=== PATIENT | female | born 1940 | race Caucasian/White ===

== ENCOUNTER 2020-01-03 17:32 | Inpatient (IN) | payer MEDICARE ==
[2020-01-03] MEDS ORDERED: ASPIRIN CHEWABL81 MG PO (18:38)
[2020-01-03] MEDS ORDERED: LIPITOR20 MG PO (18:39)
[2020-01-03] MEDS ORDERED: ZESTORETIC 10-1 EACH PO (18:41)
[2020-01-03] MEDS ORDERED: DEPAKOTE DR500 MG PO (18:42)
[2020-01-03] MEDS ORDERED: LOPRESSOR25 MG PO (18:43)
[2020-01-03] MEDS ORDERED: ALBUTEROL S5 MG/1 ML NEB (18:45)
[2020-01-03] MEDS ORDERED: Ventolin 02.5 MG/3 M INH (18:45)
[2020-01-03] MEDS ORDERED: TYLENOL EXTRA500 M2 PO (18:46)
[2020-01-03] MEDS ORDERED: ZOFRAN4 MG PO (18:46)
[2020-01-04 19:00] VITALS: BP 102/63
--- NOTE | 2020-01-04 19:00 | NUR ---
MARLI ARGUETA a 79 year old F admitted via stretcher from the ADMITTING as a emergency 72 hr. hold admission. Arrived on unit at 1900PM. ALLERGIES: IODINE AND IVP DYE. Vital signs are: 97.9-87-16 102/63. CLIENT IS PINK SLIPPED AND DIDN'T SIGN ANY OF THE FOLLOWING: : Authorization For The Release of Medical Information, Clothing List, Consent to Voluntary Admission and Hospitalization, Consent and Release Forms/Receipt of Rights, Acknowledgement of Advance Directive Information, Behavioral Health Consent Form, and Informed Consent of Medications. Admitted under the services of Dr. MINISTERIO PAINTING,[facility]. A search was conducted and hazardous articles were removed. Client was oriented to the unit. CLIENT ANSWERED QUESTIONS BUT CONTINUALLY KEPT SAYING I AM SO TIRED I DON'T WANT TO DO THIS. DID ANSWER QUESTIONS BUT WAS "TOO TIRED" TO SIGN. FAZAL JOHNSTON
[2020-01-04] MEDS ORDERED: OXYGEN NAS (19:40)
[2020-01-04 19:43] VITALS: BP 102/63
--- NOTE | 2020-01-04 20:06 | NUR ---
NOTIFIED DR MAYNARD THAT CLIENT IS HERE AND MED REC IS READY FOR REVIEW.
--- NOTE | 2020-01-04 21:46 | NUR ---
DR MORTENSEN HERE TO SEE CLIENT
--- NOTE | 2020-01-04 23:48 | NUR ---
PORTABLE CHEST XRAY DONE
--- NOTE | 2020-01-05 00:20 | NUR ---
24 HR chart check completed.
[2020-01-05 06:54] LABS: HEMOGLOBIN 11.6 g/dl (12.0-16.0); MEAN CELL VOLUME 100.5 fl (81.0-99.0); MEAN CORPUSCULAR HGB 31.5 pg (27.0-31.0); MEAN CORPUSCULAR HGB CONC 31.4 g/dl (33.0-37.0); PLATELET COUNT AUTOMATED 243 10*3/uL (130-400); RED BLOOD COUNT 3.68 10*6/uL (4.10-5.10); RED CELL DISTRI WIDTH 15.6 % (0-14.5); WHITE BLOOD COUNT 12.5 10*3/uL (4.8-10.8)
[2020-01-05 07:12] LABS: ALBUMIN 2.4 gm/dl (3.1-4.5); CREATININE 1.86 mg/dL (0.55-1.02); POTASSIUM 5.4 mmol/L (3.5-5.1); TOTAL PROTEIN 7.5 gm/dL (6.4-8.2)
[2020-01-05 07:18] LABS: ATYPICAL LYMPHS 2 % (0-0); PLATELET SUFFICIENCY NORMAL (NORMAL); TOTAL CELLS COUNTED 100 #CELLS
[2020-01-05 07:35] LABS: THYROID STIM HORMONE (HS) 7.65 uIU/ml (0.358-4.75); VALPROIC ACID (DEPAKENE) 71.3 ug/ml (50-100)
--- NOTE | 2020-01-05 08:00 | NUR ---
Treatment Plan meeting was held with Dr. Porras RN, PRODUCTION SUPERVISOR OFF SHIFT-S and Teacher Of Family And Consumer Science. Plan for discharge Next week. Pt. came to [facility] from [facility] Skilled Will Reach out to Facility today to Discuss Discharge Planning.
[2020-01-05 08:06] LABS: VITAMIN D, 25-HYDROXY 16.6 ng/mL (30-100)
[2020-01-05 09:46] VITALS: BP 130/80
--- NOTE | 2020-01-05 10:30 | NUR ---
PATIENT IS ALERT TO PERSON, MONTH/YEAR AND SITUATION; ABLE TO VOICE NEEDS. AWARE OF BEING IN THE HOSPITAL. DENIES ANY HALLUCINATIONS, DELUSIONS, HI/SI OR PAIN. MEDICATION COMPLAINT WITH EDUCATION PROVIDED. Q 15 MINUTE SAFETY CHECKS. RECEIVED ORDER FOR 0.9 NS IV FLUIDS. IV STARTED IN RIGHT AC, BLOOD RETURN NOTED, FLUSHED WITHOUT DIFFICULTY. SITE FREE FROM INFECTION. IV INFUSING AT 100CC/HR. PATIENT RECEIVED COMPAZINE 5MG IM IN LEFT DELTOID. 1 PERSON ASSIST WITH ACTIVITTIES OF DAILY LIVING. INCONTINENT OF BOWEL AND BLADDER. SET UP FOR MEALS, INTAKES 25% FOR BREAKFAST AND LUNCH, ENCOURAGE FLUIDS. 99% ON 3 LITERS NC, NO SIGNS OR SYMPTOMS OF DISTRESS. CONTINUE TO MONITOR FOR AGGRESSION; PROVIDE ONE ON ONE AND REDIRECTION NEEDED.
--- NOTE | 2020-01-05 13:00 | NUR ---
P: DEPRESSED MOOD AND IRRITABLE TO NURSING STAFF WHILE ASSISTING IN BED. I: ONE ON ONE, REDIRECTION/ORIENTATION, PROVIDE PATIENT WITH SPACE AND WARM BLANKET. R: EFFECTIVE PATIENT IS RESTING IN BED WITH EYE CLOSED, NO S/S OF DISTRESS. P: CONTINUE TO MONITOR FOR MOOD CHANGES, AGGRESSION; PROVIDE ONE ON ONE AND REDIRECTION/ORIENTATION AND SPACE NEEDED.
--- NOTE | 2020-01-05 13:50 | NUR ---
Spoke with Rhiannon at [facility]. Pt. is SNF patient at facility and will return SNF at Discharge for PT/OT. Clinical Updates faxed to Facility Attn: Rhiannon [phone].
--- NOTE | 2020-01-05 16:09 | NUR ---
Shift chart check completed.
[2020-01-05 16:24] LABS: BILIRUBIN 1+ (NEGATIVE); BLOOD TRACE-INTACT (NEGATIVE); CLARITY SL CLOUDY (CLEAR); COLOR YELLOW (YELLOW); GLUCOSE NEGATIVE (NEGATIVE); KETONE 1+ (NEGATIVE); LEUKO ESTERASE 3+ (NEGATIVE); NITRITE NEGATIVE (NEGATIVE); SPECIFIC GRAVITY 1.025 (1.005-1.030); UROBILINOGEN 0.2 E.U./dl (0.2-1.0)
[2020-01-05 16:25] LABS: BACTERIA 3+; MUCOUS 2+; WBC TNTC wbc/hpf (0-5)
--- NOTE | 2020-01-05 16:38 | NUR ---
DR. WOLFF NOTIFIED OF UA RESULTS.
[2020-01-05 20:00] VITALS: BP 122/74
--- NOTE | 2020-01-05 21:21 | NUR ---
Patient alert and oriented to person,time and situation with confusion noted at times. Memory deficits noted. Mood is calm,pleasant and cooperative at this time. Patient denies SI at this time. No s/s of any responding to internal stimuli noted. Patient compliant with HS medications without any difficulty. Provided 1:1 for emotional support. Redirected/reoriented when needed. Patient in diningroom during snacks. Patient interactive with staff and other patients. Plan to continue to encourage medication compliance. Also continue to provide emotional support and redirect/reorient when needed/appropriate. Will continue to monitor moods/behaviors. Q 15 minute safety checks continued and maintained. See [facility] flowsheet for further documentation.
--- NOTE | 2020-01-06 05:40 | NUR ---
Patient slept approx. 7.5 hours throughout shift. Q 15 minute safety checks continued and maintained.
[2020-01-06 07:18] LABS: CREATININE 1.63 mg/dL (0.55-1.02); POTASSIUM 5.2 mmol/L (3.5-5.1)
--- NOTE | 2020-01-06 08:00 | NUR ---
Treatment Plan meeting was held with Dr. Porras, RM. AT, TITI-S and Linoleum Floor Layer. Plan for discharge Next Week with Return to [facility].
[2020-01-06 08:07] VITALS: BP 120/66
--- NOTE | 2020-01-06 08:31 | NUR ---
DR SCOTT ON UNIT TO ASSESS PT, UPDATE PROVIDED.
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
--- NOTE | 2020-01-06 11:42 | NUR ---
AM GROUP PT WAS PRESENT FOR MORNING GROUP THERAPY AND RELUCTANTLY ANSWERED A FEW OF MY ASSESSMENT QUESTIONS. PT WANTED TO GO LAY DOWN AND WAS AGITATED WHEN SHE ASKED ME AND I REPLIED, "I'LL SEE IF IT'S OKAY" PT STATED, "WHAT DOES THAT MEAN, I'LL SEE? I DON'T UNDERSTAND THAT. IF I WANT TO GO LIE DOWN WHY CAN'T I?" PT THEN SPOKE WITH NURSE AND A MINUTE LATER WHEN ASKED IF HER NURSE EXPLAINED TO HER WHY SHE COULDN'T LAY DOWN, PT STATED, "I DIDN'T TALK TO THE NURSE!" PT REFUSED ANY ACTIVITY OFFERED.
--- NOTE | 2020-01-06 12:00 | NUR ---
SPOKE WITH DR BARBA 98/50 AND TRAVIS HELD AT THIS TIME AND IT WAS ALSO HELD AT 1300 YESTERDAY D/T LOW BP. NO FURTHER ORDERS AT THIS TIME.
--- NOTE | 2020-01-06 13:30 | NUR ---
PHYSICAL THERAPY Attempted to see pt this PM for evaluation pt declining at this time as she had "just gotten back into bed and wanted to rest" will follow in the AM Graciela Hartman PT
--- NOTE | 2020-01-06 13:34 | NUR ---
Patient just put in bed and c/o being cold and tired. Patient declined Occupational Therapy evaluation this date. OTr will attempt at a later date. Yulissa Srivastava OTr/L
--- NOTE | 2020-01-06 15:37 | NUR ---
PM GROUP PT DID NOT ATTEND AFTERNOON GROUP THERAPY. PT WAS IN BED RESTING
--- NOTE | 2020-01-06 16:06 | NUR ---
This AM pt was pleasant with this commercial underwriter but quickly became irritated when pt requested to go to bed and this commercial underwriter explained that group was about to begin. Pt accused this commercial underwriter of having no idea what pt was feeling. Empathized with pt and offered for pt to participate in group discussion. Pt declined.
--- NOTE | 2020-01-06 17:17 | NUR ---
P: PT IRRITABLE WITH STAFF. PT CONTINOUSLY DEMANDING TO LAY DOWN.VPT REMOVES O2 INTERMITTENTLY. PT REFUSED TO PARTICIPATE IN AFTERNOON GROUP. I: PROVIDE EMOTIONAL SUPPORT AND 1:1 FOR PT TO VOICE FEELING, SET LIMITS RE: PT LAYING DOWN, PROVIDE EDUCATION RE: OXYGEN USE, ENCOURAGE GROUP PARTICIPATION AND SOCIALIZATION R: PT ALERT TO PERSON AND PLACE, CONFUSION AND SHORT TERM MEMORY DEFICITS NOTED PER PT BASELINE. PT MED COMPLIANT WITH ENCOURAGEMENT. PT CONTINUES TO BE DEMANDING AT TIMES. PT REFUSED TO PARTICIPATE IN AFTERNOON GROUP. PT REMAINS IRRITABLE WITH STAFF. PT UP TO A WHEELCHAIR, REQUIRES 1 STAFF ASSIST FOR TRANSFERS AND CARE. PT INCONTINENT OF BOWEL AND BLADDER, EPISODES OF INCONTINENCE NOTED, CARE PROVIDED NEEDED. P: MONITOR PT BEHAVIORS ON Q15 MIN SAFETY CHECCKS, ENCOURAGE MED COMPLIANCE AND PROVIDE MED EDUCATION, PROVIDE EMOTIONAL SUPPORT AND 1:1 FOR PT TO VOICE FEELINGS, ENCOURAGE GROUP PARTICIPATION AND SOCIALIZATION, CONTINUE TO PROVIDE REMINDERS TO LEAVE O2 ON AND PROVIDE EDUCATION ON O2 USE
[2020-01-06 20:00] VITALS: BP 110/62
--- NOTE | 2020-01-06 21:14 | NUR ---
Patient alert and oriented to person,time and situation with confusion noted at times. Memory deficits noted. Mood is calm,pleasant and cooperative but with slight underlying irritability noted. Patient denies SI at this time. No s/s of any responding to internal stimuli noted. Patient compliant with HS medications without any difficulty. Provided 1:1 for emotional support. Redirected/reoriented when needed. Patient isolative to her room this evening before snacks. Patient interactive with staff and other patients. Plan to continue to encourage medication compliance. Also continue to provide emotional support and redirect/reorient when needed/appropriate. Will continue to monitor moods/behaviors. Q 15 minute safety checks continued and maintained. See [facility] flowsheet for further documentation.
--- NOTE | 2020-01-07 00:06 | NUR ---
24 HR chart check completed.
--- NOTE | 2020-01-07 05:28 | NUR ---
Patient slept approx. 8.5 hours throughout shift. Q 15 minute safety continued and maintained.
[2020-01-07 06:52] LABS: CREATININE 1.26 mg/dL (0.55-1.02); POTASSIUM 4.7 mmol/L (3.5-5.1)
--- NOTE | 2020-01-07 08:00 | NUR ---
Occupational Therapy evaluation completed on 3 with full eval to follow. Recommend OT per pOC and return to SNF upon d/c. Thank you. Yulissa Srivastvaa OTR/l
--- NOTE | 2020-01-07 08:00 | NUR ---
Treatment Plan meeting was held with ANDRIY Hastings, RN, AT, PRINCIPAL TRAINER-S and Physician Scientist. [facility] Fri[facility]
[2020-01-07 08:04] VITALS: BP 110/70
--- NOTE | 2020-01-07 09:00 | NUR ---
PHYSICAL THERAPY Ismael completed moderate level of complexity recomend SNF at discharge. PT to work on transfers, amb, balance and strenthening. Graciela Hartman PT
--- NOTE | 2020-01-07 10:51 | NUR ---
XDR. TELLEZ NOTIFIED OF UA RESULTS.
--- NOTE | 2020-01-07 11:30 | NUR ---
Spoke with Niru from [facility]. Discussed Discharge Plan and return to [facility]. Provided Car Top Bolter with number to call to notify her of Discharge .
--- NOTE | 2020-01-07 11:41 | NUR ---
TENZIN GROUP/KEVIN PT DID NOT ATTEND MORNING GROUP THERAPY. PT IS IN ISOLATION
--- NOTE | 2020-01-07 13:25 | NUR ---
Pt did not attend AM group session due to isolation status.
--- NOTE | 2020-01-07 13:39 | NUR ---
DR. DENTON NOTIFIED OF MANUAL BP 100/40, RADIAL PULSE OF 88. OKAY TO GIVE LOPRESSOR 25MG.
--- NOTE | 2020-01-07 14:13 | NUR ---
PATIENT IS ALERT TO PEROSN, SITUATION; AWARE OF BEING IN HOSPITAL AND RECALLED DATE DEC 1999. MEMORY DIFICITS NOTED. MOOD IS STABLE, PLEASANT DEMEANOR. DENIES ANY HALLUCINATIONS, DELUSIONS, HI/SI OR PAIN. NO RESPONSE TO INTERNAL STIMULI. ENCOURAGED TO PARTICIPATE IN GROUP SESSION. INTERACTIVE WITH STAFF AND OTHER PATIENTS. MEDICATION COMPLAINT. Q 15 MINUTE SAFETY CHECKS MAINTAINED. 100 % ON 3 LITERS WITH DISTRESS OR COMPLAINTS OF SHORTNESS OF BREATH. 1 PERSON ASSIST WITH ACTIVITTIES OF DAILY LIVING, INCONTINENT OF BOWEL AND BLADDER. SET UP FOR MEALS, INTAKES ARE GOOD WITH ADEQUATE FLUIDS. NO AGGRESSION OBSERVED. CONTINUE TO MONITOR FOR AGGRESSION; PROVIDE ONE ON ONE AND REDIRECTION NEEDED.
--- NOTE | 2020-01-07 14:41 | NUR ---
Clinical Updates faxed to [facility] Attn: Rhiannon [phone]
--- NOTE | 2020-01-07 15:30 | NUR ---
PM GROUP PT ATTENDED AFTERNOON GROUP THERAPY AND PARTICIPATED BY READING THE NEWSPAPER AND OBSERVING PEERS AT WORK. PT EXHIBITED NO AGGRESSIVE BEHAVIORS WHILE IN GROUP
--- NOTE | 2020-01-07 15:45 | NUR ---
Shift chart check completed.
[2020-01-07 20:00] VITALS: BP 106/61
--- NOTE | 2020-01-08 01:49 | NUR ---
P-CONFUSION, ISOLATIVE I-REDIRECTION WITH 1:1 THERAPEUTIC INTERVENTIONS AND PRESENT REALITY. EDUCATE AND ENCOURAGE GROUP THERAPY WHILE AWAKE R-PATIENT ALERT WITH SHORT TERM AND SENIOR MEDICAL BILLING SPECIALIST MEMORY DEFICITS. PATIENT WITH NO HALLUCINATIONS OR DELUSIONS. PATIENT WITH NO SUICIDAL OR HOMICIDAL IDEATIONS. PATIENT CONTINUES ON ANTIBIOTIC THERAPY FOR +UTI. NO ADVERSE REACTIONS. PATIENT MEDICATION COMPLIANT. PATIENT PROVIDED WITH NOURISHMENT AND FLUIDS AT HS. PATIENT ISOLATIVE IN DINING AREA WITH LIMITED INTERACTION WITH PEERS. P-CONTINUE TO ENCOURAGE MEDICATION COMPLIANCE, CONTINUE TO PRESENT REALITY, ENCOURAGE GROUP THERAPY WHILE AWAKE
--- NOTE | 2020-01-08 05:58 | NUR ---
PATIENT SLEPT 7 HOURS OF UNINTERRUPTED SLEEP THROUGHOUT SHIFT. Q 15 MINUTE CHECKS MAINTAINED. 24 HR chart check completed.
[2020-01-08 07:48] VITALS: BP 119/75
--- NOTE | 2020-01-08 08:58 | NUR ---
DR SCOTT ON UNIT TO ASSESS PT
--- NOTE | 2020-01-08 09:00 | NUR ---
DISCUSSED PT'S BP WITH DR SCOTT AND REVIEWED MEDICATIONS. DR PARNELLED TO CONTINUE GIVING METOPROLOL AND HOLD ALL OTHER PRATIBHA MEDICATIONS.
--- NOTE | 2020-01-08 11:53 | NUR ---
AM GROUP/AFFIRMATIONS/MOVIE PT IN ATTENDANCE AND CHOSE NOT TO PARTICIPATE IN AFFIRMATION ACTIVITY BUT DID WATCH A MOVIE. PT PLEASANT WITH NO AGGRESSION EXPRESSED AT THIS TIME.
--- NOTE | 2020-01-08 15:51 | NUR ---
PM GROUP/AFFIRMATIONS/MOVIE PT ATTENDED FIRST PART OF GROUP BUT WAS NOT PARTICIPATING. PT SOON TAKEN TO LAY DOWN BEFORE DINNER.
--- NOTE | 2020-01-08 17:17 | NUR ---
NO ADVERSE BEHAVIORS NOTED THIS SHIFT. BEHAVIORS MONITORED WITH Q15 MINUTE SAFETY CHECKS. SEE [facility] FLOWSHEET FOR SPECIFIC MONITORING.
[2020-01-08 20:00] VITALS: BP 110/60
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
--- NOTE | 2020-01-09 01:27 | NUR ---
24 HR chart check completed.
[2020-01-09 08:00] VITALS: BP 115/53
--- NOTE | 2020-01-09 12:10 | NUR ---
AM GROUP/LEISURE SKILLS PT CHOSE NOT TO ATTEND BUT TO REMAIN RESTING IN BED DURING GROUP TIME.
--- NOTE | 2020-01-09 18:21 | NUR ---
NO ADVERSE BEHAVIORS NOTED THIS SHIFT. BEHAVIORS MONITORED WITH Q15 MINUTE SAFETY CHECKS. SEE [facility] FLOWSHEET FOR SPECIFIC MONITORING.
[2020-01-09 19:46] VITALS: BP 115/66
--- NOTE | 2020-01-09 21:29 | NUR ---
P--POOR ANGER MANAGEMENT I--GAVE CLIENT TIME TO VERBALIZE. REVIEWED MEDICATIONS AND ORIENTEATION. O2 NC ON PER ORDERS. SNACK PROVIDED BY STAFF. KEEPING LEGS ELEVATED. R--I HAD A GOOD DAY. I FEEL GOOD P- MONITOR FOR CHANGES IN BEHAVIOR/MOOD AND Q 15 MIN AND PRN FOR SAFETY
--- NOTE | 2020-01-10 02:11 | NUR ---
24 HR chart check completed.
--- NOTE | 2020-01-10 06:09 | NUR ---
UP READY FOR THE DAY. O2NC ON PER ORDERS.
--- NOTE | 2020-01-10 07:05 | NUR ---
PHYSICAL THERAPY Patient seen this am for therapy visit and was siiting up in activity room w/c with continuos O2-3L via NC upon therapist arrival. Patient identified by name / and reports no new c/o's at this time. OT nurse practitioner physicians assistant was present for observation only this session as patient transfers sit to stand CGA x 1. Patient ambulates EMBEDDED SYSTEMS DESIGNER/MIN, 75'x 1, with single handrail support, demonstrating bouts of unsteady gait pattern, decreased stride and very unsteady during 180 turns. Patient needed v/c to keep her head up during gait ex and returned to her w/c in activity room awaiting breakfast under [facility] staff Supervision. Will continue per POC as tolerated, total treatment time 14 minutes. Yony Adams, RETAIL RESET MERCHANDISER
--- NOTE | 2020-01-10 07:20 | NUR ---
OT NOTE Prior to going up to the floor called charge nurse Enid who was notified of therapy coming to the floor to treat this pt. Pt was seen this A.M. 1:1 for 20 minute OT session with DIESEL LOCOMOTIVE CRANE OPERATOR and nursing staff present for observation only. Upon arrival pt was sitting upright in the dining rojas in her w/c. Pt identified by name and and had no complaints at this time. Pt presented to therapy with continuous 3L-O2 via NC which she remained on throughout the entire session. Pt was taken to her bedroom where she completed sit to stand from chair level with CGA followed by functional mobility into the bathroom with CGA MASTER DATA ANALYST. There she transferred on/off standard commode with CGA and use of grab bar for UE support. While turning to the commode pt had one LOB that required Catherine to correct, educated pt on safe turning technique. Pt then stood sink side while washing her hands with Catherine for assist with sequencing. Pt had one LOB that occured backwards while standing unsupported and crossing midline, Catherine provided to correct. Functional mobility was then completed back to the hallway with CGA MASTER DATA ANALYST. Challenged pt's dynamic standing tolerance needed for increased I in self care tasks and functional transfers, pt was able to tolerate aprox 5 minutes before sitting due to fatigue. Pt was left sitting upright in the w/c in the dining rojas under [facility] staff supervision. Continue with rec D/C plan to SNF. CASA Loera
[2020-01-10 07:42] VITALS: BP 131/68
--- NOTE | 2020-01-10 08:00 | NUR ---
Treatment Plan meeting was held with ANDRIY Hastings, RN, AT, FLORAL MERCHANDISER-S and Director Of Business Operations. Plan for discharge with Return to [facility].
--- NOTE | 2020-01-10 09:27 | NUR ---
P: CONFUSION, ALERT TO PERSON AND APPROXIMATE PLACE I: PROVIDE 1:1 FOR THERAPEUTIC COMMUNICATION. REORIENT NEEDED. ENCOURAGE PT TO ATTEND/PARTICIPATE IN GROUP. ENCOURAGE MEDICATION COMPLIANCE. MONITOR BEHAVIORS WITH Q15 MINUTE SAFETY CHECKS. R: PT STATED SHE WAS IN [facility] AND THE YEAR WAS 2001. DENIES SI/HI, SADNESS AND DEPRESSION. ATTENDED AND PARTICIPATED IN GROUP. MEDICATION COMPLIANT. NO BEHAVIORS NOTED. P: CONTINUE TO ENCOURAGE PT TO ATTEND/PARTICIPATE IN GROUP. ENCOURAGE MEDICATION COMPLIANCE. REORIENT NEEDED. MONITOR BEHAVIORS WITH Q15 MINUTE SAFETY CHECKS. EDUCATE ON MEDICATIONS NEEDED. SEE [facility] FLOWSHEET FOR SPECIFIC MONITORING.
--- NOTE | 2020-01-10 11:40 | NUR ---
AM GROUP/MOVIE PT WAS PRESENT FOR MORNING GROUP THERAPY BUT SLEPT MOST OF THE TIME.
--- NOTE | 2020-01-10 13:54 | NUR ---
Clinical Updates faxed to [facility] Attn: Rhiannon Sotelo [phone].
--- NOTE | 2020-01-10 15:37 | NUR ---
PM GROUP PT DID NOT ATTEND AFTERNOON GROUP THERAPY. PT WAS IN BED RESTING.
[2020-01-10 19:45] VITALS: BP 120/60
--- NOTE | 2020-01-10 22:02 | NUR ---
Patient alert and oriented to person and place with confusion noted. Memory deficits noted. No s/s of any responding to internal stimuli noted at this time. Patient in diningroom for snacks and watching TV. Patient isolative to self while in diningroom. Patient interactve with staff only. Mood calm,pleasant,and cooperative. Patient compliant with HS medications without any difficulty. Provided 1:1 for emotional support. Patient said "my day was not good but I am happy to see you and my day is looking better now that you are here." Redirected/reoriented when needed. Plan to continue to encourage medication compliance and encourage more interaction with other patients and staff. Also continue to provide emotional support and also redirect/reorient when needed/appropriate. Will continue to monitor moods/behaviors. Q 15 minute safety checks continued and maintained. See [facility] flowsheet for further documentation.
--- NOTE | 2020-01-11 00:09 | NUR ---
24 HR chart check completed.
--- NOTE | 2020-01-11 05:07 | NUR ---
Patient slept approx. 7 hours throughout shift. Q 15 minute safety checks continued and maintained.
--- NOTE | 2020-01-11 07:00 | NUR ---
PHYSICAL THERAPY Patient seen this am for therapy visit and was sitting up on EOB following OT radiology assistant visit. Patient identified by name / and presented without O2, recording 89% SpO2 on RA. Patient is still currently on 3L-02 and placed back on 02 with NC, recording SpO2 94%. OT radiology assistant was present for observation only as patient transfers sit to stand CGA and ambulates TRANSPORT AIRCREWMAN/CGA, 50'x 1, demonstrating very cautious gait pattern with decreased stride. Patient also demonstrated several bouts of unsteady gait, especially during 180 turns. Patient unable to complete eyes open / closed secondary to fear of falling and increaed difficulty following therapist commands. Patient also fatigues quickly and needed w/c follow for safety, while returning to activity room awaiting breakfast. Patient remained in w/c at table under [facility] staff Suupervision. Will continue per POC as tolerated, total treatment time 14 minutes. Yony Adams, DANCE ENTERTAINER
--- NOTE | 2020-01-11 07:49 | NUR ---
Pt was seen for 15 minutes with OT beginning with fxl mobility to bathroom area using w/walker with CGA due to history of falls. 1 cue for safety when performing fxl mobility. Pt stood at sink in bathroom for grooming with S/CGA while washing face/hands & combing hair. Continue with OT POC. Micki SANTIAGO/Ricardo
[2020-01-11 08:00] VITALS: BP 110/70; BP 120/84
--- NOTE | 2020-01-11 08:00 | NUR ---
Treatment Plan meeting was held with Dr. Porras, ANDRIY Hastings RN, SENIOR ACCOUNT REPRESENTATIVE-S and University Relations Vice President. Plan for discharge Friday with return to [place].
--- NOTE | 2020-01-11 08:00 | NUR ---
Treatment Plan meeting was held with Dr. Porras, ANDRIY Hastings, RN, AT, REGIONAL INTERMODAL TRUCK DRIVER-S and Switch Adjuster. Plan for discharge with return to [facility].
--- NOTE | 2020-01-11 10:13 | NUR ---
AXEL MOLINA CNP ON UNIT TO ASSESS PATIENT.
--- NOTE | 2020-01-11 11:54 | NUR ---
Group discussion this AM between this pt, another female pt, and this gag writer. Discussed the benefits of having pets - companionship and unconditional love. Pts shared personal stories about current and previous pets. Pt was pleasant throughout discussion with no inappropriate behaviors. Pt did ask often when lunch would be coming but was easily redirected back to topic of discussion.
--- NOTE | 2020-01-11 12:37 | NUR ---
Spoke with Niru at [place]. Advised of Plans to discharge Friday. Transportation arranged with facility to transport with fish bait picker time 5:00-5:30 on Friday. That is the only available time slot open for transportation this week.
--- NOTE | 2020-01-11 12:51 | NUR ---
MANUAL BP TO RIGHT ARM 124/62, RADIAL PULSE 84
--- NOTE | 2020-01-11 17:00 | NUR ---
Shift chart check completed.
[2020-01-11 19:32] VITALS: BP 121/76
--- NOTE | 2020-01-11 20:21 | NUR ---
PATIENT IS ALERT AND ORIENTED TO PERSON, PLACE, TIME AND SITUATION; ABLE TO VOICE NEEDS. MOOD IS SLIGHT DEPRESSED, STABLE. DENIES ANY HALLUCINATIONS, DELUSIONS, HI/SI OR PAIN. 1 PERSON ASSIST WITH ACTIVITIES OF DAILY LIVING, INCONTINENT OF BOWEL AND BLADDER. SET UP FOR MEALS, INTAKES ARE GOOD WITH ADEQUATE FLUIDS. MEDICATION COMPLAINT WITH EDUCATION PROVIDED. Q 15 MINUTE SAFETY CHECKS MAINTAINED. CONTINUE TO MONITOR FOR AGGRESSION; PROVIDE ONE ON ONE AND REDIRECTION NEEDED.
--- NOTE | 2020-01-11 21:18 | NUR ---
Patient alert and oriented to person and place with confusion noted. Memory deficits noted. No s/s of any responding to internal stimuli noted at this time. Patient isolative to her room this evening. Patient interactve with staff only. Mood calm,pleasant,and cooperative. Patient compliant with HS medications without any difficulty. Provided 1:1 for emotional support. Redirected/reoriented when needed. Plan to continue to encourage medication compliance and encourage more interaction with other patients and staff. Also continue to provide emotional support and also redirect/reorient when needed/appropriate. Will continue to monitor moods/behaviors. Q 15 minute safety checks continued and maintained. See [facility] flowsheet for further documentation.
--- NOTE | 2020-01-12 00:33 | NUR ---
24 HR chart check completed.
--- NOTE | 2020-01-12 06:19 | NUR ---
Patient slept approx. 8 hours throughout shift. Q 15 minute safety checks continued and maintained.
[2020-01-12 06:45] LABS: BASO % 0.4 % (0.0-1.0); EOS # 0.3 10*3/uL (0.0-0.4); EOS % 3.9 % (1.0-4.0); HEMATOCRIT 25.7 % (37.0-47.0); LYMPH % 41.1 % (27.0-41.0); MEAN CELL VOLUME 101.6 fl (81.0-99.0); MEAN CORPUSCULAR HGB 31.6 pg (27.0-31.0); MEAN CORPUSCULAR HGB CONC 31.1 g/dl (33.0-37.0); MEAN PLATELET VOLUME 11.3 fl (9.6-12.3); MONO # 0.8 10*3/uL (0.1-1.0); MONO % 10.5 % (3.0-9.0); NEUT # 3.2 10*3/uL (2.3-7.9); NEUT % 43.1 % (47.0-73.0); PLATELET COUNT AUTOMATED 174 10*3/uL (130-400); RED BLOOD COUNT 2.53 10*6/uL (4.10-5.10); RED CELL DISTRI WIDTH 15.9 % (0-14.5); WHITE BLOOD COUNT 7.4 10*3/uL (4.8-10.8)
[2020-01-12 07:02] LABS: BUN 34 mg/dl (7-24); CHLORIDE 108 mmol/L (98-107); CREATININE 0.83 mg/dL (0.55-1.02); POTASSIUM 5.5 mmol/L (3.5-5.1); SODIUM 142 mmol/L (136-145)
--- NOTE | 2020-01-12 07:40 | NUR ---
PHYSICAL THERAPY Patient seen this am for therapy visit and was sitting up in activity room w/c upon therapist arrival. Patient identified by name / and presented with continuos O2-3L via NC. OT clinical laboratory assistant was present this morning for observation only as patient transfers sit to stand MIN a x 1. Patient ambulated 25'x 1, then additional 40'x 1, MIN/CGA, while pushing w/c to simulate a shopping cart. Patient needed several v/c's to focus on task as she demonstrated some mild bouts of confusion with quick onset of fatigue. Patient also needed v/c to increase stride and was very cautious during all turns. Patient requires 24/7 Supervision and remains high risk for falling as unable to complete single leg stance balance ex. Patient returned to activity room and remained in her w/c at table awaiting breakfast under [facility] staff Supervision. Will continue per POC as tolerated, total treatment time 15 minutes. Yony Adams, ECMO SPECIALIST
--- NOTE | 2020-01-12 07:50 | NUR ---
OT NOTE Before coming to the floor spoke with charge nurse Diana and notified of therapy coming to the floor to treat this pt. Pt was seen this A.M. 1:1 for 15 minute OT session with INSTRUMENT DESIGNER and nursing staff present for observation only. Upon arrival pt was sitting upright in the w/c in the dining rojas. Pt identified by name and and had no complaints at this time. Pt presented to therapy with continuous 3L-O2 via NC which she remained on throughout the entire session. Pt completed functional mobility the bathroom with Catherine AGEE. There she transferred on/off standard commode with CGA and use of grab bar for UE support. Pt then stood sink side while washing her hands with Catherine for assist with sequencing of task. Pt was educated on pursed lip breathing throughout which she had poor carry over of throughout session. Functional mobility completed back to the dining rojas with Catherine AGEE. There she was left sitting upright in the w/c under [facility] staff supervision. Throughout entire session pt required verbal prompts for attention to task. Continue with rec d/C plan to SNF. LATISHA Loera/Ricardo
--- NOTE | 2020-01-12 07:53 | NUR ---
SPOKE WITH AXEL OMLINA NP RE: PT POTASSIUM, HGB AND HCT RESULTS. PER AXEL SHE WILL TAKE A LOOK, NO FURTHER ORDERS AT THIS TIME.
[2020-01-12 08:00] VITALS: BP 110/70
--- NOTE | 2020-01-12 08:05 | NUR ---
Treatment Plan meeting was held with Dr. Porras, ANDRIY Hastings, RN, AT, GRE TUTOR-S and Finish Patcher. Plan for discharge Friday. Pt. will return to [facility] for SNF placement for therapy.
[2020-01-12 10:18] LABS: BASO % 0.2 % (0.0-1.0); EOS # 0.2 10*3/uL (0.0-0.4); EOS % 2.1 % (1.0-4.0); HEMATOCRIT 27.7 % (37.0-47.0); HEMOGLOBIN 8.6 g/dl (12.0-16.0); LYMPH # 1.9 10*3/uL (1.3-4.4); LYMPH % 22.7 % (27.0-41.0); MEAN CELL VOLUME 100.7 fl (81.0-99.0); MEAN CORPUSCULAR HGB 31.3 pg (27.0-31.0); MEAN PLATELET VOLUME 11.1 fl (9.6-12.3); MONO # 0.9 10*3/uL (0.1-1.0); MONO % 10.3 % (3.0-9.0); NEUT # 5.3 10*3/uL (2.3-7.9); NEUT % 63.6 % (47.0-73.0); PLATELET COUNT AUTOMATED 183 10*3/uL (130-400); RED BLOOD COUNT 2.75 10*6/uL (4.10-5.10); WHITE BLOOD COUNT 8.3 10*3/uL (4.8-10.8)
--- NOTE | 2020-01-12 10:26 | NUR ---
SPOKE WITH AXEL MOLINA NP RE: PT LABS, PER AXEL SHE WILL ORDER MORE FOR TOMORROW. NO FURTHER ORDERS AT THIS TIME.
--- NOTE | 2020-01-12 11:31 | NUR ---
Left Voice Message for Ashleigh at [facility] to notify of plans to discharge on Friday. Clinical Updates faxed to facility [phone].
--- NOTE | 2020-01-12 11:36 | NUR ---
AM GROUP PT DID NOT ATTEND MORNING GROUP THERAPY. PT WAS IN BED RESTING.
--- NOTE | 2020-01-12 11:40 | NUR ---
AXEL MOLINA SILVER MINER BLASTING ON UNIT TO ASSESS PT, UPDATE PROVIDED.
--- NOTE | 2020-01-12 13:21 | NUR ---
P: PT TEARFUL AT TIMES. PT ISOALTIVE TO ROOM THIS MORNING, REFUSING TO PARTICIPATE IN MORNING GROUP. PT IRRITABLE AT TIMES WITH STAFF AND PEERS. I: PROVIDE EMOTIONAL SUPPORT AND 1:1 FOR PT TO VOICE FEELINGS, ENCOURAGE GROUP PARTICIPATION AND SOCIALIZATION, ENCOURAGE MED COMPLIANCE AND PROVIDE MED EDUCATION R: PT ALERT TO PERSON AND PLACE, CONFUSION AND SHORT TERM MEMORY DEFICITS NOTED PER PT BASELINE. PT CALM, CONTINUES TO BE ISOLATIVE TO ROOM THROUGHOUT THE DAY, REFUSING TO PARTICIPATE IN MORNING GROUP. PT REMAINS IRRITABLE AT TIMES. NO HALLUCINATIONS OR DELUSIONS NOTED AT THIS TIME. NO SUICIDAL THOUGHTS OR BEHAVIORS NOTED AT THIS TIME. PT UP TO A WHEELCHAIR D/T UNSTEADY GAIT AND LACK OF SAFETY AWARENESS. PT WILL AMBULATE SHORT DISTANCES VIA 1-2 STAFF ASSIST. PT CONTINENT OF BOWEL AND BLADDER. P: MONITOR PT BEHAVIORS ON Q15 MIN SAFETY CHECKS, ENCOURAGE MED COMPLIANCE AND PROVIDE MED EDUCATION, ENCOURAGE GROUP PARTICIPATION AND SOCIALIZATION, RE-ORIENT AND PRESENT REALITY NEEDED, PROVIDE EMOTIONAL SUPPORT AND 1:l FOR PT TO VOICE FEELINGS.
--- NOTE | 2020-01-12 14:50 | NUR ---
PT NOT INTERACTING WITH GROUP ACTIVITY, THIS NURSE SPENT TIME 1:1 IN WHICH SHE BEGAN TO TALK ABOUT HER LOVE OF DRAWING, READING AND MUSIC. PT TALKED WITH THIS NURSE PLEASANT INTERACTIVE WHILE DRAWING A PICTURE. PT DID NOT WANT TO COLOR DUE TO COMPLAINT OF POOR VISION BUT BECAME ANIMATED WITH DRAWING FREE HANDED. PT SPOKE OF HER AND HOW HER DAUGHTER IS NO LONGER IN HER LIFE. PT UNABLE TO RECALL REASON FOR SEPARATION. CONTINUE TO MONITOR, NO SI/HI OR DELUSIONS NOTED. WORD FINDING DIFFICULTY NOTED AND EASILY DISTRACTED.
--- NOTE | 2020-01-12 15:32 | NUR ---
PM GROUP PT ATTENDED AFTERNOON GROUP THERAPY AND PARTICIPATED MINIMALLY. PT WAS FOCUSED ON GOING TO LAY DOWN. PT EXHIBITED NO AGGRESSIVE BEHAVIORS WHILE IN GROUP
[2020-01-12 20:00] VITALS: BP 112/64
--- NOTE | 2020-01-12 23:18 | NUR ---
P-CONFUSION, ISOLATIVE I-REDIRECTION WITH 1:1 THERAPEUTIC INTERVENTIONS AND PRESENT REALITY. EDUCATE AND ENCOURAGE GROUP THERAPY WHILE AWAKE R-PATIENT ALERT WITH SHORT TERM AND CART PUSHER MEMORY DEFICITS. PATIENT WITH NO HALLUCINATIONS OR DELUSIONS. PATIENT WITH NO SUICIDAL OR HOMICIDAL IDEATIONS. PATIENT PROVIDED WITH NOURISHMENT AND FLUIDS AT HS. PATIENT ISOLATIVE IN QUIET AREA WITH LIMITED INTERACTION WITH PEERS. PATIENT CONTINUES ON 3L O2 CONTINUOUS AND MAINTAINING WITHOUT DIFFICULTY P-CONTINUE TO ENCOURAGE MEDICATION COMPLIANCE, CONTINUE TO PRESENT REALITY, ENCOURAGE GROUP THERAPY WHILE AWAKE
[2020-01-13 06:22] LABS: BASO % 0.3 % (0.0-1.0); EOS # 0.3 10*3/uL (0.0-0.4); EOS % 4.5 % (1.0-4.0); HEMATOCRIT 23.5 % (37.0-47.0); HEMOGLOBIN 7.5 g/dl (12.0-16.0); LYMPH # 2.9 10*3/uL (1.3-4.4); MEAN CELL VOLUME 100.9 fl (81.0-99.0); MEAN CORPUSCULAR HGB 32.2 pg (27.0-31.0); MEAN CORPUSCULAR HGB CONC 31.9 g/dl (33.0-37.0); MONO # 0.8 10*3/uL (0.1-1.0); MONO % 10.5 % (3.0-9.0); NEUT # 3.2 10*3/uL (2.3-7.9); NEUT % 43.5 % (47.0-73.0); PLATELET COUNT AUTOMATED 164 10*3/uL (130-400); RED BLOOD COUNT 2.33 10*6/uL (4.10-5.10); RED CELL DISTRI WIDTH 16.3 % (0-14.5); WHITE BLOOD COUNT 7.3 10*3/uL (4.8-10.8)
--- NOTE | 2020-01-13 06:27 | NUR ---
MARLI ARGUETA [id number] Please refer to the physician's history and physical for past medical history, comorbid conditions, and allergies. Diagnosis: INTERMITTENT EXPLOSIVE DISORDER Todd Score: 16,AT RISK WOUND DESCRIPTIONS: Wound Number: 1 Location of the wound: Left buttocks Type of wound: IAD Thickness: Partial Size: 8.0cm x 0.5cm x 0.1cm Tunneling: none Undermining: none Sinus Tract: none Presence of Exudate: none Amount: None Color: Red Odor: None Periwound Skin Appearance: Normal Wound edges: approximated Pain (associated with wound): none at time of assessment How does patient state this happened? pt unsure how this happened Wound Number: 2 Location of the wound: right buttocks Type of wound: IAD Thickness: Partial Size: 6.0cm x 0.2cm x 0.1cm Tunneling: none Undermining: none Sinus Tract: none Presence of Exudate: none Amount: None Color: Red Odor: None Periwound Skin Appearance: Normal Wound edges: approximated Pain (associated with wound): none at time of assessment How does patient state this happened? pt unsure how this happened Surface the patient is resting on: Proform SKIN PREVENTION RECOMMENDATION: 1. Pressure redistribution support surface as appropriate 2. Elevate heels 3. Remove boots/TEDS every shift and reapply 4. Head of bed 30 degrees as tolerated 5. Assess nutrition and hydration 6. Manage moisture 7. Avoid the use of containment devices while in bed 8. Use absorptive products on surfaces limit layers of linens on bed 9. Turn and reposition every 1-2 hours in bed and every 1 hour in chair as tolerated 10. Weight shifts every 15 minutes while up in chair 11. Offloading with pillows or device to keep heels elevated off bed 12. Monitor skin at least every shift 13. Inspect under medical devices twice a day WOUND TREATMENT RECOMMENDATIONS: Cleanse right and left buttocks with nss and apply calazime every shift and prn for soiling. Continue Wheelchair cushion when oob
[2020-01-13 06:46] LABS: BUN 32 mg/dl (7-24); CHLORIDE 109 mmol/L (98-107); CREATININE 0.95 mg/dL (0.55-1.02); SODIUM 143 mmol/L (136-145)
--- NOTE | 2020-01-13 07:05 | NUR ---
PHYSICAL THERAPY Patient seen this am for therapy visit and was sitting up in conference room w/c upon therapist arrival. Patient identified by name / and presented with continuous 02-2L via IA. OT quality control assistant was also present this morning for observation only as patient reports no new c/o's at this time. Patient transfers sit to stand CGA and ambulates SOFTWARE DEVELOPMENT PROJECT MANAGER/CGA, however demonstrated very unsteady gait pattern. Patient instructed to hold onto w/c from behind and push it along like a shopping cart. Patient stated she felt safer and continued for 50'x 2, CGA, demonstrating "shuffling" gait pattern with decreased stride. Patient fatigues quickly, needing a brief seated rest break, < 30 seconds to complete all gait ex safely this session. Patient returned to w/c in activity room awaiting breakfast, under [facility] staff Supervision. Will continue per POC as tolerated, total treatment time 16 minutes. Yony Adams, AUTO DISMANTLER
--- NOTE | 2020-01-13 07:15 | NUR ---
OT NOTE Prior to coming to the floor spoke with charge nurse Jessica and reported that therapy would be coming to the floor to treat this pt. Pt was seen this A.M. 1:1 for 15 minute OT session with VIDEOGAME TESTER and nursing staff present for observation only. Upon arrival pt was sitting upright in the w/c in the quiet room. Pt identified by name and and had no complaints at this time. Pt presented to therapy with continuous 2L-O2 via NC which she remained on throughout the entire session. Pt completed sit to stand from chair level with Catherine followed by functional mobility to the bedroom with CGA CARPENTER CRADLE AND DOLLY. There she transferred sit to supine with SBA and supine to sit EOB with SBA. Challenged pt's dynamic standing balance needed for increased I and enhanced safety in self care tasks, pt was able to maintain F-/P+ standing balance while weight shifting, crossing midline, and reaching over all planes. Pt was left sitting upright in the w/c in the quiet room under [facility] staff supervision. Continue with rec D/C plan to SNF. LATISHA Loera/Ricardo
--- NOTE | 2020-01-13 07:41 | NUR ---
SPOKE WITH DR WOLFF AT [phone] RE: PT LAB RESULTS FOR THIS MORNING. PER DR WOLFF HE WILL MAKE A NOTE. NO FURTHER ORDERS AT THIS TIME.
[2020-01-13 08:00] VITALS: BP 114/62
--- NOTE | 2020-01-13 08:00 | NUR ---
Treatment Plan meeting was held with Dr. Porras, RN, AT and Brick Tender. Plan for discharge Friday. [facility].
--- NOTE | 2020-01-13 08:06 | NUR ---
Patient eating breakfast at this time in dining room with peers. Respirations easy and regular. Vital signs stable. No overt distress. TRAV LITTLE on unit to see pt at this time, update given.
--- NOTE | 2020-01-13 09:03 | NUR ---
Dr. Rico notified of wound care recommendations
--- NOTE | 2020-01-13 13:22 | NUR ---
SPOKE WITH DR WOLFF AT [phone] RE: PT OCCULT STOOL RESULTS. NO FURTHER ORDERS AT THIS TIME.
--- NOTE | 2020-01-13 13:30 | NUR ---
AM GROUP PT WAS PRESENT FOR MORNING GROUP THERAPY BUT CHOSE NOT TO PARTICIPATE. PT SAT AND NAPPED.
--- NOTE | 2020-01-13 15:17 | NUR ---
1517 DR WILDER ON THE UNIT, UPDATE PROVIDED RE: PT LABS AND POSITIVE OCCULT STOOL. PER DR PÉREZ DISCHARGE PT TO MEDICAL FLOOR, UNMONITORED, ISOLATION ROOM. [address] WOLFF AND ASKED THAT HE CONTINUE PT MEDICAL MEDS FOR DISCHARGE. [address] MANDEL ORDERS RECEIVED FOR MEDICATIONS.
--- NOTE | 2020-01-13 15:25 | NUR ---
ON UNIT TO SEE PT AT THIS TIME, STATES TO D/C PT TO MEDICAL FLOOR WITH DX: GI BLEED TO UNMONITORED BED WITH ISOLATION PRECAUTIONS FOR +VRE/URINE. NURSING TIMBER MANAGEMENT SPECIALIST AND JEWELRY COATER MADE AWARE. AWAITING RETURN CALL FROM TIMBER MANAGEMENT SPECIALIST WITH BED ASSIGNMENT.
--- NOTE | 2020-01-13 15:32 | NUR ---
CALL PLACED TO RE: DISCHARGE TO MEDICAL UNIT, NO ANSWER AT THIS TIME, WILL REATTEMPT.
--- NOTE | 2020-01-13 15:34 | NUR ---
Spoke with Pt. Step Daughter Odessa and Notified her of Pt. being sent to Medical Floor due to Change in Medical Condition. Unable to reach Pt. on the Phone number Provided and No voice Mail option is available. Call Placed to [facility] and Spoke with Rhiannon and Notified her of Transfer to medical Floor.
--- NOTE | 2020-01-13 15:44 | NUR ---
PM GROUP PT DID NOT ATTEND AFTERNOON GROUP THERAPY. PT WAS IN BED RESTING.
[2020-01-13] MEDS ORDERED: NAMENDA10 MG PO (15:48)
[2020-01-13] MEDS ORDERED: EXELON13.3 MG/21 TD (15:49)
[2020-01-13] MEDS ORDERED: RISPERIDONE M-TA1 MG PO (15:49)
--- NOTE | 2020-01-13 16:09 | NUR ---
SPOKE WITH DR WILDER RE: PT MEDICAL MEDDS NEEDING COMPLETED FOR DISCHARGE.
[2020-01-13] MEDS ORDERED: VITAMIN D3125 MC1 PO (16:22)
--- NOTE | 2020-01-13 16:30 | NUR ---
PT DISCHARGED TO 5TH FLOOR VIA WHEELCHAIR, ESCORTED BY 2 STAFF. NURSE TO NURSE REPORT GIVEN TO BAM.
--- NOTE | 2020-01-14 08:17 | NUR ---
OCCUPATIONAL THERAPY CO-SIGN I approve of the Occupational Therapy notes written above. WESTLEY LAWRENCE OTR/Ricardo
--- NOTE | 2020-01-17 07:34 | NUR ---
PHYSICAL THERAPY CO-SIGN I approve of the Physical Therapy notes written above. Graciela Hartman PT
== END 2020-01-13 16:25 | disposition short-term general hospital (02) | DRG 883 ==
LOC: CANPREIN → 3N 17:32
PROVIDERS: Family Medicine; Registered Nurse; ADMIT Psychiatry & Neurology Psychiatry
DX: F63.81 Intermittent explosive disorder (principal); N17.0 Acute kidney failure with tubular necrosis; E46 Unspecified protein-calorie malnutrition; F33.2 Major depressive disorder, recurrent severe without psychotic features; F02.81 Dementia in other diseases classified elsewhere, unspecified severity, with behavioral disturbance; K92.2 Gastrointestinal hemorrhage, unspecified; J44.9 Chronic obstructive pulmonary disease, unspecified; I50.9 Heart failure, unspecified; R26.2 Difficulty in walking, not elsewhere classified; R73.9 Hyperglycemia, unspecified; E87.5 Hyperkalemia; D53.9 Nutritional anemia, unspecified; R56.9 Unspecified convulsions; G30.9 Alzheimer's disease, unspecified; I11.0 Hypertensive heart disease with heart failure; G62.9 Polyneuropathy, unspecified; E55.9 Vitamin D deficiency, unspecified; Z68.24 Body mass index [BMI] 24.0-24.9, adult; Z88.8 Allergy status to other drugs, medicaments and biological substances; Z90.710 Acquired absence of both cervix and uterus; Z87.891 Personal history of nicotine dependence; Z83.3 Family history of diabetes mellitus; Z79.82 Long term (current) use of aspirin; Z79.899 Other long term (current) drug therapy

== ENCOUNTER 2020-01-13 17:01 | Inpatient (IN) | payer MEDICARE ==
[~2020-01-13] VITALS: Ht 162.5 cm; Wt 64.6 kg
[2020-01-13 16:00] VITALS: BP 136/59
[~2020-01-13 17:01] MED LIST: ALBUTEROL S5 MG/1 ML NEB; ASPIRIN CHEWABL81 MG PO; DEPAKOTE DR500 MG PO; EXELON13.3 MG/21 TD; LIPITOR20 MG PO; LOPRESSOR25 MG PO; NAMENDA10 MG PO; OXYGEN NAS; RISPERIDONE M-TA1 MG PO; TYLENOL EXTRA500 M2 PO; VITAMIN D3125 MC1 PO; Ventolin 02.5 MG/3 M INH; ZESTORETIC 10-1 EACH PO; ZOFRAN4 MG PO
[2020-01-13 20:00] VITALS: BP 127/48
[2020-01-14] VITALS (8 sets, daily range): BP systolic 98–134; BP diastolic 35–90
[2020-01-14 06:07] LABS: BASO % 0.1 % (0.0-1.0); EOS # 0.3 10*3/uL (0.0-0.4); EOS % 4.7 % (1.0-4.0); HEMOGLOBIN 7.7 g/dl (12.0-16.0); LYMPH # 2.7 10*3/uL (1.3-4.4); MEAN CORPUSCULAR HGB 32.1 pg (27.0-31.0); MEAN CORPUSCULAR HGB CONC 32.1 g/dl (33.0-37.0); MONO # 0.8 10*3/uL (0.1-1.0); MONO % 10.9 % (3.0-9.0); NEUT # 3.1 10*3/uL (2.3-7.9); NEUT % 44.9 % (47.0-73.0); PLATELET COUNT AUTOMATED 172 10*3/uL (130-400); RED CELL DISTRI WIDTH 16.2 % (0-14.5); WHITE BLOOD COUNT 6.9 10*3/uL (4.8-10.8)
[2020-01-14 06:36] LABS: BUN 31 mg/dl (7-24); CHLORIDE 109 mmol/L (98-107); POTASSIUM 4.9 mmol/L (3.5-5.1); SODIUM 143 mmol/L (136-145)
[2020-01-14 06:40] LABS: ALKALINE PHOSPHATASE 61 U/L (45-117); PHOSPHOROUS 3.9 mg/dL (2.5-4.9); SGOT/AST 11 IU/L (3-35); SGPT/ALT 8 U/L (12-78); TOTAL PROTEIN 5.8 gm/dL (6.4-8.2)
[2020-01-14 06:53] LABS: ACT PARTIAL THROMBO TIME 24.1 SECONDS (20.0-32.1); INTERNATIONAL NORM RATIO 0.9 (2.0-3.5)
[2020-01-15] VITALS: BP 128/57
[2020-01-15 06:21] LABS: BASO % 0.3 % (0.0-1.0); EOS # 0.3 10*3/uL (0.0-0.4); HEMATOCRIT 23.9 % (37.0-47.0); HEMOGLOBIN 7.6 g/dl (12.0-16.0); LYMPH # 2.7 10*3/uL (1.3-4.4); LYMPH % 40.5 % (27.0-41.0); MEAN CELL VOLUME 100.4 fl (81.0-99.0); MEAN CORPUSCULAR HGB 31.9 pg (27.0-31.0); MEAN CORPUSCULAR HGB CONC 31.8 g/dl (33.0-37.0); MEAN PLATELET VOLUME 10.4 fl (9.6-12.3); MONO # 0.8 10*3/uL (0.1-1.0); MONO % 12.1 % (3.0-9.0); NEUT # 2.8 10*3/uL (2.3-7.9); NEUT % 42.6 % (47.0-73.0); PLATELET COUNT AUTOMATED 171 10*3/uL (130-400); RED BLOOD COUNT 2.38 10*6/uL (4.10-5.10); RED CELL DISTRI WIDTH 16.6 % (0-14.5); WHITE BLOOD COUNT 6.5 10*3/uL (4.8-10.8)
[2020-01-15 06:49] LABS: ALKALINE PHOSPHATASE 67 U/L (45-117); BUN 25 mg/dl (7-24); CHLORIDE 109 mmol/L (98-107); CREATININE 0.92 mg/dL (0.55-1.02); POTASSIUM 5.2 mmol/L (3.5-5.1); SGOT/AST 13 IU/L (3-35); SGPT/ALT 11 U/L (12-78); SODIUM 144 mmol/L (136-145)
[2020-01-15 08:00] VITALS: BP 149/81
[2020-01-15 08:20] LABS: IRON 54 ug/dL (50-170); TOTAL IRON BINDING CAPACITY 206 ug/dl (250-450)
[2020-01-15 12:00] VITALS: BP 126/45
[2020-01-15 16:00] VITALS: BP 126/49
[2020-01-15 20:00] VITALS: BP 150/80
[2020-01-16] VITALS: BP 124/77
[2020-01-16 06:40] LABS: BASO % 0.3 % (0.0-1.0); EOS # 0.3 10*3/uL (0.0-0.4); HEMATOCRIT 26.5 % (37.0-47.0); HEMOGLOBIN 8.3 g/dl (12.0-16.0); LYMPH # 2.6 10*3/uL (1.3-4.4); LYMPH % 39.3 % (27.0-41.0); MEAN CELL VOLUME 99.3 fl (81.0-99.0); MEAN CORPUSCULAR HGB 31.1 pg (27.0-31.0); MEAN CORPUSCULAR HGB CONC 31.3 g/dl (33.0-37.0); MEAN PLATELET VOLUME 10.1 fl (9.6-12.3); MONO # 0.9 10*3/uL (0.1-1.0); NEUT # 2.8 10*3/uL (2.3-7.9); NEUT % 42.8 % (47.0-73.0); PLATELET COUNT AUTOMATED 182 10*3/uL (130-400); RED BLOOD COUNT 2.67 10*6/uL (4.10-5.10); RED CELL DISTRI WIDTH 16.5 % (0-14.5); WHITE BLOOD COUNT 6.6 10*3/uL (4.8-10.8)
[2020-01-16 08:00] VITALS: BP 150/66
[2020-01-16] MEDS ORDERED: PROTONIX40 MG PO (08:41)
== END 2020-01-16 13:12 | disposition other institution (70) | DRG 377 ==
LOC: 5E 17:01
PROVIDERS: Internal Medicine; ADMIT Internal Medicine
PROC: 0DB78ZX Excision of Stomach, Pylorus, Via Natural or Artificial Opening Endoscopic, Diagnostic (ICD-10-PCS; principal; 2020-01-14)
DX: K29.71 Gastritis, unspecified, with bleeding (principal); E43 Unspecified severe protein-calorie malnutrition; I67.82 Cerebral ischemia; F31.2 Bipolar disorder, current episode manic severe with psychotic features; F23 Brief psychotic disorder; F02.81 Dementia in other diseases classified elsewhere, unspecified severity, with behavioral disturbance; D53.9 Nutritional anemia, unspecified; E87.8 Other disorders of electrolyte and fluid balance, not elsewhere classified; G30.9 Alzheimer's disease, unspecified; F63.81 Intermittent explosive disorder; J44.9 Chronic obstructive pulmonary disease, unspecified; R73.03 Prediabetes; I50.9 Heart failure, unspecified; R26.2 Difficulty in walking, not elsewhere classified; G62.9 Polyneuropathy, unspecified; D72.829 Elevated white blood cell count, unspecified; E87.5 Hyperkalemia; G40.909 Epilepsy, unspecified, not intractable, without status epilepticus; R73.9 Hyperglycemia, unspecified; I11.0 Hypertensive heart disease with heart failure; K44.9 Diaphragmatic hernia without obstruction or gangrene; Z90.49 Acquired absence of other specified parts of digestive tract; Z90.710 Acquired absence of both cervix and uterus; Z87.891 Personal history of nicotine dependence; Z82.49 Family history of ischemic heart disease and other diseases of the circulatory system; Z83.3 Family history of diabetes mellitus; Z91.041 Radiographic dye allergy status; Z79.82 Long term (current) use of aspirin; Z79.899 Other long term (current) drug therapy; Z68.24 Body mass index [BMI] 24.0-24.9, adult